=== PATIENT | female | born 2000 | race Caucasian/White ===

== ENCOUNTER 2024-06-29 01:24 | Emergency (ER) | payer OTHER, SELFPAY ==
[2024-06-29 01:29] VITALS: BP 137/96; PULSE 83; TEMP 37; O2SAT 98; BMI 20.4
--- NOTE | 2024-06-29 01:47 | ED.GENADUL1 ---
HPI HPI - General Adult General Chief complaint: Skin/Abscess/Foreign Body Stated complaint: SKIN IRRITATION Time Seen by Provider: 06/29/24 01:35 Source: patient Mode of arrival: walk-in History of Present Illness HPI narrative: 23-year-old female to the emergency department chief complaint rash that started over the last 24 to history of shingles with similar symptoms. She reports that the rash is painful. It is located on the right side under her breast. No injury. No new exposures. Otherwise at her baseline health. Related Data Previous Rx's ?Medication ?Instructions ?Recorded valacyclovir 1 gram tablet 1,000 mg PO Q8H 7 days #21 tabs 06/29/24 Allergies Allergy/AdvReac Type Severity Reaction Status Date / Time No Known Drug Allergies Allergy Verified 06/29/24 01:36 Opioid HPI Opioid Management Most Recent Opioid Data: No Data to Display Review of Systems ROS Status of ROS 10 or more systems reviewed and unremarkable except as noted in history and below PFSH PFSH Social History Little interest or pleasure in doing things: not at all Feeling down, depressed, or hopeless: not at all Exam Narrative Exam Narrative: VITALS: I have reviewed the triage vital signs. GENERAL: Well developed, well appearing adult in no acute distress. NEURO: Alert and oriented. Moves all extremities. Face is symmetric and expressive. SKIN: Warm and dry. Normal turgor. Erythematous rash with early vesicles located in a dermatomal distribution below the right breast. PSYCH: Mood, affect, and interaction is appropriate to the setting. Constitutional Vital Signs, click to edit/add: Last Vital Signs Temp 98.6 F 06/29/24 01:29 Pulse 83 06/29/24 01:29 Resp 16 06/29/24 01:29 BP 137/96 H 06/29/24 01:29 Pulse Ox 98 06/29/24 01:29 O2 Del Method Room Air 06/29/24 01:29 Course Vital Signs Vital signs: Vital Signs Temperature 98.6 F 06/29/24 01:29 Pulse Rate 83 06/29/24 01:29 Respiratory Rate 16 06/29/24 01:29 Blood Pressure 137/96 H 06/29/24 01:29 Pulse Oximetry 98 06/29/24 01:29 Oxygen Delivery Method Room Air 06/29/24 01:29 Temperature 98.6 F 06/29/24 01:29 Pulse Rate 83 12/18/24 01:29 Respiratory Rate 16 06/29/24 01:29 Blood Pressure 137/96 H 06/29/24 01:29 Pulse Oximetry 98 06/29/24 01:29 Oxygen Delivery Method Room Air 06/29/24 01:29 Medical Decision Making MDM Narrative Medical decision making narrative: 23-year-old female with rash below the right breast. Clinically consistent with early zoster. Vital stable, the patient is afebrile. Previously received an IM injection of steroid as well as valacyclovir and did well. She would like the same treatment today which I believe is reasonable. She will follow-up with her doctor. Return precautions were discussed. All questions were answered. The patient was discharged home. Medical Records Medical records reviewed: Yes I reviewed the patient's medical records Discharge Plan Discharge Chief Complaint: Skin/Abscess/Foreign Body Clinical Impression: Herpes zoster Patient Disposition: Home, Self-Care Condition: Good Mode of Transportation: Private Vehicle Prescriptions / Home Meds: New valacyclovir 1 gram tablet 1,000 mg PO Q8H 7 Days Qty: 21 0RF Print Language: Bulgarian Instructions: Shingles (ED) Additional Instructions: Call the office of your primary care doctor to arrange for follow-up within the above-stated timeframe. Your ED visit was focused on your acute issue and does not replace primary care. You should review your labs, imaging, and diagnoses from this ED visit with your primary care physician. There may be non-emergent/ incidental findings that need further evaluation. You should review your vital signs including blood pressure with your PCP. If you were prescribed medications you should discuss possible side-effects and drug interactions with your pharmacist. Call 911 or go to the nearest Emergency Department if you develop any new or worsening symptoms. Referrals: Physician,Non-Staff, MD [Primary Care Provider] - 1 week
[2024-06-29] MEDS: TRIAMCINOLONE ACETONIDE 40 MG/ML VIAL IM (02:01)
[2024-06-29] MEDS: VALACYCLOVIR HCL 500 MG TABLET 1000 MG PO (02:01)
== END 2024-06-29 02:10 | disposition home or self-care (01) ==
PROVIDERS: Emergency Provider Student in an Organized Health Care Education/Training Program
DX: B02.9 Zoster without complications (principal)
CPT/HCPCS: 96372; 99284; J3301

== ENCOUNTER 2025-02-13 22:48 | Emergency (ER) | payer OTHER, SELFPAY ==
--- OUTSIDE RECORDS SUMMARY | 2025-02-13 22:53 | XMS_ITS | CCD ---
Author Organization [facility] Care Team Providers Care Yard Clerk Name Role Phone JEANNIE KNOX Admitting Unavailable JEANNIE KNOX Attending Unavailable [facility] Primary Care Unava ilable JEANNIE KNOX Consulting Unavailable PAY ., DR COBIAN Admitting Unavailable PAY ., DR COBIAN Attending Unavailable PAY ., DR COBIAN Consulting Unavailable [facility] Care Unava ilable PEDRO FRAZIER Consulting Unavailable Elver Gray Attending Unavailable Elver Gray Admitting Unavailable NO FAMILY, PHYSICIAN Primary Care Unavailable NO PCP, NO PCP Primary Care Unavailable No Pcp, No Pcp Primary Care Provider Unavailabl e EMELI FERREIRA Referring Unavailable NO PCP, NO PCP Primary Care Unavailable EMELI FERREIRA Referring Unavailable NO PCP, NO PCP Primary Care Unavailable Medications Current Medications Medication Drug Class(es) Dates Sig (Normalized) Sig (Original) ethinyl estradiol 0.005 mg / norethindrone acetate 1 mg oral tablet (3 sources) Estrogen norethindrone ac -eth estradiol (FEMHRT 07/17) 1-5 mg-mcg tablet Take by mouth daily. Active fluconazole 150 mg oral tablet (1 source) Azole Antifungal Start: 07-09-2024 End: 07-09-2024 take 1 tablet by mouth once fluconazole (DIFLUCAN) 150 mg tablet Indications: Vaginal yeast infection Take 1 tablet (150 mg total) by mouth once for 1 dose. 1 tablet 07/09/2024 07/09/2024 Active ondansetron 4 mg disintegrating oral tablet (3 sources) Serotonin-3 Receptor Antagonist Start: 08-02-2022 take 1 tablet by mouth every eight hours as needed for nausea ondansetron ODT (ZOFRAN ODT) 4 mg disintegrating tablet Dissolve 1 tablet (4 mg total) on tongue every 8 (eight) hours as needed for nausea for up to 10 doses. 10 tablet 1 08/02/2022 Active vit 20-rjte-lsciu-dha ( + DHA) 28 mg iron- 975 mcg-200 mg combo pack (3 sources) Start: 06-30-2024 take 1 tablet by mouth in the morning vit 88-drkg-mifpn-dha ( + DHA) 28 mg iron- 975 mcg-200 mg combo pack Indications: Attempting to conceive Take 1 tablet by mouth in the morning. 30 each 11 06/30/2024 Active Problems Active Problems Problem Classification Problem Date Documented Date Episodic/Chronic Immunizations and screening for infectious disease (2 sources) Encounter for screening for infections with a predominantly sexual mode of transmission; Translations: [Encounter for screening for infections with a predominantly sexual mode of transmission] Onset: 06-30-2024 Episodic Inflammatory diseases of female pelvic organs (2 sources) Abscess of vulva; Translations: [Acute vaginitis] Onset: 07-03-2022 Episodic Mycoses (1 source) Candidiasis of vagina; Translations: [Vaginal yeast infection] 07-09-2024 Episodic Residual codes; unclassified (1 source) Other specified health status; Translations: [Other specified health status] Onset: 06-30-2024 Episodic Substance-related disorders (1 source) Nicotine dependence, cigarettes, uncomplicated; Translations: [NICOTINE DEPEND CIGARETTES UNCOMP] Onset: 07-03-2022 Chronic Unclassified (1 source) Annual Exam Onset: 06-30-2024 Viral infection (1 source) Zoster without complications; Translations: [Zoster without complications] Onset: 12-20-2022 Episodic Past or Other Problems Problem Classification Problem Date Documented Da te Episodic/Chronic Abdominal pain (4 sources) Unspecified abdominal pain; Translations: [UNSPECIFIED ABDOMINAL PAIN] Onset: 04-23-2022 Episodic Mood disorders (3 sources) Mood disorders Onset: 06-30-2024 06-30-2024 Nausea and vomiting (1 source) Nausea; Translations: [NAUSEA] Onset: 04-25-2022 Episodic Other skin disorders (3 sources) Rash and other nonspecific skin eruption; Translations: [RASH OTH NONSPECIFIC SKIN ERUPTION] Onset: 07-01-2022 Episodic Results Test Name Value Interpretation Reference Range Facil ity CHLAMYDIA/GC PCR, FLon 06-30 CHLAMYDIA/GC PCR, FL CHLAMYDIA PCR, FL Negative (qualifier value) Chlamydia trachomatis not detected by nucleic acid amplification. This does not exclude the possibility of infection because results are dependent on adequate specimen collection. GONORRHOEAE PCR, FL Negative (qualifier value) Neisseria gonorrhoeae not detected by nucleic acid amplification. This does not exclude the possibility of infection because results are dependent on adequate specimen collection. Normal [facility] Comment on above: Performed By: #### [facility] #### [facility] ([id number]) [address] [place] [address], [address] [place] [address] Cytologyon 06-30-2024 Cytology Normal [facility] Comment on above: Result Comment: [facility] [address] [place] [address] Gynecologic Cytology Consultation Patient Name:TOYA DE LA ROSA:2000 (Age: 23)Gender:FTaken:06/30/2024eported:07/19/2024Physician(s):Emeli Ferreira C.N.M. ([phone])Copy To: Rec. #:[id number]: #[id number] Final Cytologic Interpretation ThinPrep Pap Test (Cervical): Satisfactory for evaluation. A transformation zone component is present. Obscuring bacteria present. NEGATIVE FOR INTRAEPITHELIAL LESION OR MALIGNANCY. Fungal organisms morphologically consistent with Constance species are present. az/07/19/2024 Interpretation performed [facility] [place] [address], License number: [id number]. Electronically Signed Out By ALLEN Eastman(ASCP) Date of Last Menstrual Period: 06/21/24 Other Clinical Conditions: Z01.419 [employer]st[employer] Crew Leader exam wo/abn findings Source of Specimen ThinPrep Pap Test (Cervical) Thin Prep Pap (WHARF WORKER) Fee Code(s): G0145 The Pap test is a screening test with an inherent, but low, probability of error. The Pap test is primarily effective for the diagnosis and prevention of squamous cell carcinoma. Regular screening is critical for prevention. ThinPrep liquid-based slides, which meet the Magnetic Observer criteria for automated screening, have been screened by the ThinPrep Imaging System (as of 03/29/07) along with an additional manual rescreening by a special library librarian and, if indicated, by a pathologist. GRAM STAINon 06-30-2024 Microscopic observation Gram stain Nom (Unsp spec) GRAM STAIN INTERMEDIATE FOR BACTERIAL VAGINOSIS, ALTERED VAGINAL CRISTOPHER (Based on Kathleen scoring, validated for vaginal specimens) YEAST-LIKE ORGANISMS PRESENT Normal [facility] Comment on above: Performed By: #### 6 [id number] #### [facility] ([id number]) [address] [place] [address], [address] [place] [address] TRICHOMONAS PCRon 06-30-2024 TRICHOMONAS PCR SPECIMEN SOURCE VAGINAL TRICHOMONAS PCR Not detected (qualifier value) Trichomonas vaginalis not detected NOTE Assay methodology is nucleic acid amplification by real-time PCR for detection of Trichomonas vaginalis DNA performed on [employer] Instrument System. Normal [facility] Comment on above: Performed By: #### T RKPCR #### [facility] ([id number]) [address] [place] [address], [address] [place] [address] YEAST CULTUREon 06-30-2024 Yeast Org specific cx Ql (Unsp spec) FUNGAL SMEAR MANY YEAST RARE PSEUDOHYPHAE ON DIRECT SMEAR CULTURE RESULTS MANY CONSTANCE ALBICANS Abnormal [facility] Comment on above: Performed By: #### 1 [id number] #### [facility] ([id number]) [address] [place] [address], [address] [place] [address] CBC AUTO DIFFon 04-23-2022 BASO # 0.1 103/ul Normal 0.0-0.1 [facility] Comment on above: Performed By: #### C BC #### [facility] [address] [place] [address] Dr. Tung Rai Basophils/100 WBC (Bld) 0.7 % Normal 0.2-2.0 [facility] Comment on above: Performed By: #### C BC #### [facility] [address] [place] [address] Dr. Tung Rai EO # 0.4 103/ul Normal 0.0-0.7 [facility] Comment on above: Performed By: #### C BC #### [facility] [address] [place] [address] Dr. Tung Rai Eosinophils/100 WBC (Bld) 5.2 % Normal 0.9-7.0 [facility] Comment on above: Performed By: #### C BC #### [facility] [address] [place] [address] Dr. Tung Rai Erythrocyte distribution width (RBC) [Ratio] 12.6 % Normal 11.0-15.0 [facility] Comment on above: Performed By: #### C BC #### [facility] [address] [place] [address] Dr. Tung Rai Hematocrit (Bld) [Volume fraction] 36.2 % Normal 36.0-48.0 [facility] Comment on above: Performed By: #### C BC #### [facility] [address] [place] [address] Dr. Tung Rai Hemoglobin (Bld) [Mass/Vol] 12.0 g/dL Normal 12.0-16.0 [facility] Comment on above: Performed By: #### C BC #### [facility] [address] [place] [address] Dr. Tung Rai IG # 0.03 10e3/ul Normal 0.00-0.03 [facility] Comment on above: Performed By: #### C BC #### [facility] [address] [place] [address] Dr. Tung Rai IG % 0.4 % Normal 0.0-0.5 [facility] Comment on above: Performed By: #### C BC #### [facility] [address] [place] [address] Dr. Tung Rai LYMPH # 2.1 103/ul Normal 1.2-3.8 [facility] Comment on above: Performed By: #### C BC #### [facility] [address] [place] [address] Dr. Tung Rai Lymphocytes/100 WBC (Bld) 25.9 % Normal 20.5-60.0 [facility] Comment on above: Performed By: #### C BC #### [facility] [address] [place] [address] Dr. Tung Rai MANUAL DIFF REQ NO Normal [facility] Comment on above: Performed By: #### C BC #### [facility] [address] [place] [address] Dr. Tung Rai MCH (RBC) [Entitic mass] 30.8 pg Normal 26.7-34.0 [facility] Comment on above: Performed By: #### C BC #### [facility] [address] [place] [address] Dr. Tung Rai MCHC (RBC) [Mass/Vol] 33.1 g/dL Normal 29.9-35.2 [facility] Comment on above: Performed By: #### C BC #### [facility] [address] [place] [address] Dr. Tung Rai MCV (RBC) [Entitic vol] 93.1 fL Normal 81.0-99.0 [facility] Comment on above: Performed By: #### C BC #### [facility] [address] [place] [address] Dr. Tung Rai MONO # 0.8 103/ul Normal 0.3-0.8 [facility] Comment on above: Performed By: #### C BC #### [facility] [address] [place] [address] Dr. Tung Rai Monocytes/100 WBC (Bld) 9.2 % Normal 1.7-12.0 [facility] Comment on above: Performed By: #### C BC #### [facility] [address] [place] [address] Dr. Tung Rai NEUT # 4.8 103/ul Normal 1.4-6.5 [facility] Comment on above: Performed By: #### C BC #### [facility] [address] [place] [address] Dr. Tung Rai Neutrophils/100 WBC (Bld) 58.6 % Normal 43.0-75.0 [facility] Comment on above: Performed By: #### C BC #### [facility] [address] [address] [address] Tung Rai Platelet mean volume (Bld) [Entitic vol] 11.7 fL Normal 9.5-13.5 [facility] Comment on above: Performed By: #### C BC #### [facility] [address] [address] [address] Tung Rai PLT 266 103/ul Normal 150-450 [facility] Comment on above: Performed By: #### C BC #### [facility] [address] [address] [address] Tung Rai RBC 3.89 106/ul Critically low 4.20-5.40 [facility] Comment on above: Performed By: #### C BC #### [facility] [address] [address] [address] Tung Rai WBC 8.3 103/ul Normal 4.0-11.0 [facility] Comment on above: Performed By: #### C BC #### [facility] [address] ABD/PELVIS WO CONon 04-23 CT ABD/PELVIS WO CON EXAMINATION: CT ABD/PELVIS WO CON, 04/23/2022 9:15 AM EDT HISTORY: UNSPECIFIED ABDOMINAL PAIN COMPARISON: None. TECHNIQUE: CT scan of the abdomen and pelvis was performed without IV contrast. CT dose reduction technique was used, including Automated Exposure Control. ABDOMEN/PELVIS FINDINGS: Lower Chest: Unremarkable. Liver: Normal nonenhanced appearance and contour. Biliary/Gallbladder: Unremarkable. Pancreas: Unremarkable. Spleen: Unremarkable. Adrenal Glands: Unremarkable. Kidneys: Unremarkable. Gastrointestinal/Perit oneum: No acute abnormality. The appendix is unremarkable. No free air or free fluid. Vascular: Unremarkable. Lymph Nodes: No enlarged lymph nodes by CT size criteria. Pelvic Organs: Unremarkable. Bladder: Unremarkable. Bones: No acute osseous abnormality. Soft tissues: Unremarkable. IMPRESSION: 1. No acute abnormality of the abdomen and pelvis. Electronically authenticated by: PEDRO FRAZIER Date: 2022-04-23 10:28 Normal [facility] ER URINE PROFILEon 2 Bilirubin Ql (U) Negative Normal NEGATIVE [facility] Comment on above: Performed By: #### E RESHMA FUNEZ, PREGU #### [facility] [address] [address] [address] Tung Rai Clarity (U) CLEAR Normal CLEAR [facility] Comment on above: Performed By: #### E RUR UMICRO, PREGU #### [facility] [address] [address] [address] Tung Rai Color (U) LT. YELLOW Normal YELLOW [facility] Comment on above: Performed By: #### RESHMA FLOYD, PREGU #### [facility] [address] [place] [address] Dr. Tung LEBLANC A micrscopic examination will be performed if indicated. Normal [facility] Comment on above: Performed By: #### Roderick RUR UMICRO, PREGU #### [facility] [address] [address] [address] Tung Rai Glucose Ql (U) Negative Normal NEGATIVE [facility] Comment on above: Performed By: #### RESHMA FLOYD, PREGU #### [facility] [address] [address] [address] Tung Rai Hemoglobin Ql (U) SMALL Abnormal NEGATIVE [facility] Comment on above: Performed By: #### Roderick RURADELEICRO, PREGU #### [facility] [address] [address] [address] Tung Rai Ketones Ql (U) Negative Normal NEGATIVE [facility] Comment on above: Performed By: #### Roderick RURADELEICRO, PREGU #### [facility] [address] [address] [address] Tung Rai LEUKOCYTES TRACE Abnormal NEGATIVE [facility] Comment on above: Performed By: #### Roderick RURADELEICRO, PREGU #### [facility] [address] [address] [address] Tung Rai Nitrite Ql (U) Negative Normal NEGATIVE [facility] Comment on above: Performed By: #### E RUR, UMICRO, PREGU #### [facility] [address] [place] [address] Dr. Tung Rai pH (U) 7.0 [pH] Normal 5-9 [facility] Comment on above: Performed By: #### E RUR, UMICRO, PREGU #### [facility] [address] [place] [address] Dr. Tung Rai SPEC GRAVITY 1.025 Normal 1.005-<=1.025 [facility] Comment on above: Performed By: #### E RUR UMICRO, PREGU #### [facility] [address] [place] [address] Dr. Tung Rai UA PROTEIN Negative Normal NEGATIVE/ TRACE [facility] Comment on above: Performed By: #### E RUR UMICRO, PREGU #### [facility] [address] [place] [address] Dr. Tung Rai UR MICRO IND INDICATED Normal [facility] Comment on above: Performed By: #### E RUR, UMICRO, PREGU #### [facility] [address] [place] [address] Dr. Tung Rai Urobilinogen Qn (U) 1.0 {Johana'U}/dL Normal 0.2 - 1.0 [facility] Comment on above: Performed By: #### E RUR UMICRO, PREGU #### [facility] [address] [place] [address] Dr. Tung Rai LIPASEon 04-23-2022 Lipase [Catalytic activity/Vol] 77.0 U/L Normal 73.0-393.0 [facility] Comment on above: Performed By: #### L IPA, CMP #### [facility] [address] [place] [address] Dr. Tung Rai URon 04-23-2022 , QUAL Negative Normal NEGATIVE [facility] Comment on above: Performed By: #### E RUR, UMICRO, PREGU #### [facility] [address] [address] [address] Tung Rai PROF 14(COMP METB)on 022 Albumin [Mass/Vol] 4.0 g/dL Normal 3.4-5.0 [facility] Comment on above: Performed By: #### L IPA, CMP #### [facility] [address] [place] [address] Dr. Tung Rai Albumin/Globulin [Mass ratio] 1.1 {ratio} Normal [facility] Comment on above: Performed By: #### L IPA, CMP #### [facility] [address] [place] [address] Dr. Tung Rai ALP [Catalytic activity/Vol] 59 U/L Normal 46-116 [facility] Comment on above: Performed By: #### L IPA, CMP #### [facility] [address] [place] [address] Dr. Tung Rai ALT [Catalytic activity/Vol] 19 U/L Normal 14-59 [facility] Comment on above: Performed By: #### L IPA, CMP #### [facility] [address] [place] [address] Dr. Tung Rai Anion gap [Moles/Vol] 13.5 mmol/L Normal [facility] Comment on above: Performed By: #### L IPA, CMP #### [facility] [address] [place] [address] Dr. Tung Rai AST [Catalytic activity/Vol] 14 U/L Critically low 15-37 [facility] Comment on above: Performed By: #### L IPA, CMP #### [facility] [address] [place] [address] Dr. Tung Rai Bilirubin [Mass/Vol] 0.3 mg/dL Normal 0.2-1.0 [facility] Comment on above: Performed By: #### L IPA, CMP #### [facility] [address] [place] [address] Dr. Tung Rai Calcium [Mass/Vol] 9.1 mg/dL Normal 8.5-10.1 [facility] Comment on above: Performed By: #### L IPA, CMP #### [facility] [address] [address] [address] Tung Rai Chloride [Moles/Vol] 103 mmol/L Normal 98-107 [facility] Comment on above: Performed By: #### L IPA, CMP #### [facility] [address] [address] [address] Tung Rai CO2 [Moles/Vol] 26.1 mmol/L Normal 21.0-32.0 [facility] Comment on above: Performed By: #### L IPA, CMP #### [facility] [address] [address] [address] Tung Rai Creatinine [Mass/Vol] 0.72 mg/dL Normal 0.55-1.02 [facility] Comment on above: Performed By: #### L IPA, CMP #### [facility] [address] [place] [address] Dr. Tung Rai EGFR-AF [place] >60 Normal >=60 [facility] Comment on above: Performed By: #### L IPA, CMP #### [facility] [address] [address] [address] Tung Rai EGFR-NON AF [place] >60 Normal >=60 [facility] Comment on above: Performed By: #### L IPA, CMP #### [facility] [address] [address] [address] Tung Rai Globulin (S) [Mass/Vol] 3.7 g/dL Normal [facility] Comment on above: Performed By: #### L IPA, CMP #### [facility] [address] [address] [address] Tung Rai Glucose [Mass/Vol] 90 mg/dL Normal 74-106 [facility] Comment on above: Performed By: #### L IPA, CMP #### [facility] [address] [address] [address] Tung Rai Potassium [Moles/Vol] 3.6 mmol/L Normal 3.5-5.1 [facility] Comment on above: Performed By: #### L IPA, CMP #### [facility] [address] [address] [address] Tung Rai Protein [Mass/Vol] 7.7 g/dL Normal 6.4-8.2 [facility] Comment on above: Performed By: #### L IPA, CMP #### [facility] [address] [address] [address] Tung Rai Sodium [Moles/Vol] 139 mmol/L Normal 136-145 [facility] Comment on above: Performed By: #### L IPA, CMP #### [facility] [address] [place] [address] Dr. Tung Rai Urea nitrogen [Mass/Vol] 12.0 mg/dL Normal 7.0-18.0 [facility] Comment on above: Performed By: #### L IPA, CMP #### [facility] [address] [place] [address] Dr. Tung Rai Urea nitrogen/Creatinin e [Mass ratio] 16.7 mg/mg Normal [facility] Comment on above: Performed By: #### L IPA, CMP #### [facility] [address] [place] [address] Dr. Tung Rai URINE MICROSCOPIC ONLYon BACTERIA TRACE Abnormal NONE SEEN [facility] Comment on above: Performed By: #### RESHMA FLOYD, PREGU #### [facility] [address] [place] [address] Dr. Tung Rai Bacteria identified Cx Nom (U) NOT INDICATED Normal [facility] Comment on above: Performed By: #### RESHMA FLOYD, PREGU #### [facility] [address] [place] [address] Dr. Tung Rai CAST NONE SEEN Normal NONE SEEN [facility] Comment on above: Performed By: #### RESHMA FLOYD, PREGU #### [facility] [address] [place] [address] Dr. Tung Rai Crystals LM Nom (Urine sed) NONE SEEN Normal NONE SEEN [facility] Comment on above: Performed By: #### RESHMA FLOYD, PREGU #### [facility] [address] [address] [address] Tung Rai Epithelial cells LM Ql (Urine sed) FEW Abnormal NONE SEEN /RARE [facility] Comment on above: Performed By: #### RESHMA FLOYD, PREGU #### [facility] [address] [address] [address] Tung Rai MUCOUS SMALL Abnormal NONE SEEN [facility] Comment on above: Performed By: #### RESHMA FLOYD, PREGU #### [facility] [address] [address] [address] Tung Rai RBC 2-5 Abnormal 0-2 [facility] Comment on above: Performed By: #### RESHMA FLOYD, PREGU #### [facility] [address] [address] [address] Tung Rai WBC 2-5 Abnormal NONE SEEN [facility] Comment on above: Performed By: #### RESHMA FLOYD, PREGU #### [facility] [address] [address] [address] Tung Rai Encounters Encounter Date Encounter Type Care Provider Facility Start: 07-09-2024 End: 07-09-2024 Telephone encounter Emeli COELLO Work Phone: [facility] Comment on above: Vaginal yeast infect ion (Primary Dx) Start: 07-08-2024 End: 07-08-2024 Telephone encounter Emeli COELLO [facility] Start: 06-30-2024 End: 06-30-2024 ambulatory EMELI FERREIRA [facility] Start: 06-30-2024 End: 06-30-2024 ambulatory NO PCP NO PCP [facility] Start: 06-30-2024 Encounter for gynecological examination (general) (routine) without abnormal findings NO NO PCP [facility] Start: 06-30-2024 End: 06-30-2024 ambulatory [facility] Start: 06-30-2024 Encounter for gynecological examination (general) (routine) without abnormal findings EMELI FERREIRA [facility] Start: 12-20-2022 End: 12-20-2022 Emergency department patient visit Elver Gray Facility:[facility] Start: 07-01-2022 End: 07-02-2022 ambulatory JEANNIE KNOX Facility: Start: 04-23-2022 End: 04-23-[address] MANGO MARTINEZ . Facility: Procedures Date Procedure Procedure Detail Performing Clinician Start: 06-30-2024 Adult depression scr eening assessment Emelisree Kwonglorne BROCK-MONIM Work Phone: Start: 06-30-2024 Microscopic observat ion [Identifier] in Cervix by Cyto stain Emeli CURIEL Work Phone: Plan of Treatment Date Care Activity Detail Author Start: 06-30-2027 Screening for malign ant neoplasm of cervix Pap Smear [facility] Start: 12-29-2025 Tobacco Counseling Tobacco Counselin g [facility] Start: 06-30-2025 Adult BMI Screening Adult BMI Screen ing [facility] Start: 06-30-2025 Depression Screening Depression Scre ening [facility] Start: 06-30-2025 Tobacco Screening Tobacco Screening [facility] Start: 03-13-2024 Influenza vaccination Influenza Vacc ine [facility] Start: 03-03-2024 DTaP,Tdap and Td Vaccines (7 - Td or Tdap) DTaP,Tdap and Td Vaccines (7 - Td or Tdap) [facility] Immunizations Immunization Date Immunization Notes Care Provider Nicole huber 06-16-2003 influenza virus vaccine, unspecified formulation Emeli Kwonglorne HOSPITAL PRODUCT SPECIALIST-CN[facility] Work Phone: [facility] Payers Date Payer Category Payer Commercial Managed C are - [employer] Member Subscriber Plan / Payer (Effective 2024-Present) Name: Toya De La Rosa Member ID: [id number] Relation to Subscriber: Child Name: Mango De La Rosa Date of : 1980 (Home) Address: [address] [place] [address] Payer ID: Not on file Type: Not on file Address: [address] [place] [address] [id number] 2024 Unknown [id number] 2022 Self-pay 2001 Unknown [id number] 2001 Unknown [id number] 2001 Unknown [id number] 2001 Unknown [id number] 2001 Unknown [id number] 1959 Unknown [id number] Unknown [id number] Social History Date Type Detail Facility Start: 06-30-2024 Tobacco smoking status LAIS Smokes tobacco daily [facility] History of tobacco use Tobacco U se Types Packs/Day Years Used Date Smoking Tobacco: Every Day Vaping/E-cigarettes Smokeless Tobacco: Never [facility] Start: 06-30-2024 Tobacco use and exposure Smokeless tobacco non-user [facility] Start: 06-30-2024 Alcoholic beverage intake Ex-drinker (finding) [facility] Start: 01-24-2020 End: 08-23-2020 History of Social function [facility] Start: 01-24-2020 End: 08-23-2020 Alcohol Use Disorder Identification Test - Consumption [AUDIT-C] [facility] How often to you hav e a drink containing alcohol? Never [facility] Average Number of Drinks Not on file [facility] Start: 08-02-2022 Alcohol Comment occasionally [facility] Start: 2001 Sex assigned at Not on file [facility] Start: 02-15-2015 Sex Female (finding) [facility] History of Present illness Narrative 07-09-2024 [facility] Limon - 07/09/2024 10:08 AM EST Note Date & Type Note Facility 07-09-2024 History of Presen t illness Narrative Vag yeast infection Rx. Diflucan sent to pharmacy [facility] 07/09/24 1009 documented in this encounter [facility] Note 07-09-2024 Telephone Encounter - [facility] Limon - 07/09/2024 10:06 AM EST Note Date & Type Note Facility 07-09-2024 Miscellaneous Notes Formattin g of this note might be different from the original. Call to pt. To discuss results. VM reached. documented in this encounter [facility] Telephone encounter Note 07-09-2024 Telephone Encounter - [facility]UM[facility] Limon - 07/09/2024 10:06 AM EST Note Date & Type Note Facility 07-09-2024 Telephone encount er Note Call to pt. To discuss results. VM reached. [facility] Note 07-08-2024 Telephone Encounter - [facility]UM[facility] Limon - 07/08/2024 5:46 PM EST Note Date & Type Note Facility 07-08-2024 Miscellaneous Notes Formattin g of this note might be different from the original. CALL TO PT. TO DISCUSS VAGINAL CULTURES AND VM REACHED. ADVISED FOR PT. TO CALL BACK FOR RESULTS documented in this encounter [facility] Telephone encounter Note 07-08-2024 Telephone Encounter - OUM[facility] Limon - 07/08/2024 5:46 PM EST Note Date & Type Note Facility 07-08-2024 Telephone encount er Note CALL TO PT. TO DISCUSS VAGINAL CULTURES AND VM REACHED. ADVISED FOR PT. TO CALL BACK FOR RESULTS [facility] Evaluation note Note Date & Type Note Facility Evaluation note Diagnosis Vaginal yeast infection- Primary Candidiasis of vulva and vagina documented in this encounter [facility] Instructions Note Date & Type Note Facility Instructions Not on filedocumented in this en counter [facility] Instructions Note Date & Type Note Facility Instructions Not on filedocumented in this en counter [facility] Summary Purpose Family History No Family History Records FoundNo Family History Records FoundNo Family History Records FoundNo Family History Records FoundNo Family History Records Found Advance Directives No Advanced Directives Records FoundNo Advanced Directives Records FoundNo Advanced Directives Records FoundNo Advanced Directives Records FoundNo Advanced Directives Records Found Additional Source Comments INFORMATION SOURCE (unrecogn ized section and content) DATE CREATED AUTHOR 10/14/[address] 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 This clinical summary was aggregated from multiple sources. Caution should be exercised in using it in the provision of clinical care. This summary normalizes information from multiple sources, and as a consequence, information in this document may materially change the coding, format and clinical context of patient data. In addition, data may be omitted in some cases. CLINICAL DECISIONS SHOULD BE BASED ON THE PRIMARY CLINICAL RECORDS. [facility]. provides no warranty or guarantee of the accuracy or completeness of information in this document.
[2025-02-13 23:20] VITALS: BP 136/69; PULSE 97; TEMP 36.9; O2SAT 97; BMI 19.5
[2025-02-13 23:29] LABS: Glucose Urine UA NEGATIVE (NEGATIVE)
--- NOTE | 2025-02-13 23:29 | ED_ITS ---
HPI HPI - General Adult General Chief complaint: Back Pain/Injury Stated complaint: Flank Pain Time Seen by Provider: 02/13/25 22:58 Source: patient Mode of arrival: walk-in Limitations: no limitations History of Present Illness HPI narrative: 24-year-old female presented to the emergency department for pain in her right shoulder area which goes down her ribs on the right side. She has had this pain for a few days. For the last 3 months when she started her menstrual cycle she developed this pain. There is been no injury or fever or cough or abdominal pain. The timing of her period is normal. Related Data Home Medications ?Medication ?Instructions ?Recorded ?Confirmed No Known Home Medications 02/13/25 0811/04 Allergies Allergy/AdvReac Type Severity Reaction Status Date / Time No Known Drug Allergies Allergy Verified 02/13/25 23:19 Opioid HPI Opioid Management Most Recent Opioid Data: Last Pain Scale 10 02/13/25, 23:29 Review of Systems ROS Narrative A ten point review of systems is negative except as noted above. PFSH PFSH Social History Little interest or pleasure in doing things: not at all Feeling down, depressed, or hopeless: not at all Exam Narrative Exam Narrative: Nurses note and vital signs reviewed and patient is not hypoxic. General: The patient appears well and in no apparent distress. Patient is resting comfortably on cart. Skin: Warm, dry, no pallor noted. There is no rash noted. Head: Normocephalic, atraumatic Eye: Normal conjunctiva, no drainage Ears, Nose, Mouth, and Throat: oral mucosa is moist. Nares patent. Cardiovascular: Regular Rate and Rhythm Respiratory: Patient is in no distress, no accessory muscle use, lungs are clear to auscultation, no wheezing, rales or rhonchi Back: There is no bruise rash or abrasion. She has palpable tenderness in the right lateral mid rib region. GI: Soft and nontender Musculoskeletal: The patient has no evidence of calf tenderness, no pitting edema, symmetrical pulses noted bilaterally Neurological: A&O, normal speech Psychiatric: Cooperative Constitutional Vital Signs, click to edit/add: Last Vital Signs Temp 98.5 F 02/13/25 23:20 Pulse 97 H 02/13/25 23:20 Resp 18 02/13/25 23:20 BP 136/69 02/13/25 23:20 Pulse Ox 97 02/13/25 23:20 O2 Del Method Room Air 02/13/25 23:20 Course Vital Signs Vital signs: Vital Signs Temperature 98.5 F 02/13/25 23:20 Pulse Rate 97 H 02/13/25 23:20 Respiratory Rate 18 02/13/25 23:20 Blood Pressure 136/69 02/13/25 23:20 Pulse Oximetry 97 02/13/25 23:20 Oxygen Delivery Method Room Air 02/13/25 23:20 Temperature 98.5 F 02/13/25 23:20 Pulse Rate 97 H 02/13/25 23:20 Respiratory Rate 18 02/13/25 23:20 Blood Pressure 136/69 02/13/25 23:20 Pulse Oximetry 97 02/13/25 23:20 Oxygen Delivery Method Room Air 02/13/25 23:20 Medical Decision Making MDM Narrative Medical decision making narrative: Urinalysis, test, and chest x-ray are all negative. The patient had some concerns about endometriosis. She has no abdominal pain and I have no suspicion that this is endometriosis. I also do not suspect an ovarian cyst which is a concern of the patient as well. 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 Treatment diagnosis and follow-up were discussed thoroughly. Differential Diagnosis Differential Diagnosis: UTI, kidney stone, pneumothorax Lab Data Lab results reviewed: Yes I reviewed the patient's lab results Labs: Lab Results 02/13/25 Range/Units 23:20 Urine Color Lt. yellow (YELLOW) Urine Clarity Clear (CLEAR) Urine pH 7.0 (5.0-9.0) Ur Specific [place] 1.015 (1.005-1.025) Urine Protein Negative (NEG/TRACE) mg/dL Urine Glucose (UA) Negative (NEGATIVE) mg/dL Urine Ketones Negative (NEGATIVE) mg/dL Urine Occult Blood Negative (NEGATIVE) Urine Nitrite Negative (NEGATIVE) Urine Bilirubin Negative (NEGATIVE) Urine Urobilinogen 1.0 (0.2-1.0) EU/dL Ur Leukocyte Esterase Negative (NEGATIVE) Urine RBC None seen (0-2) #/HPF Urine WBC None seen (NONE SEEN) #/HPF Ur Squamous Epith Cells Rare (NONE/RARE) #/LPF Urine Crystals Seen A (None Seen) #/HPF Amorphous Sediment Many Urine Bacteria Small A (NONE SEEN) #/HPF Urine Casts None seen (NONE SEEN) #/LPF Urine Mucus None seen (NONE SEEN) Ur Culture Indicated? Yes[facility] [place] Urine HCG, Qual Negative (NEGATIVE) Imaging Data Chest x-ray: Radiologist's impression: ITS Impressions Chest X-Ray 02/13/25 23:29 IMPRESSION: NEGATIVE CHEST. Impression dictated by: Nixon Steve M.D. 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
--- NOTE | 2025-02-13 23:29 | XR_ITS ---
[facility] [place] [id number] Patient Name: TOYA DE LA ROSA MRN: [id number] date: 2000 Sex: F Assigned Patient Location: ER Current Patient Location: ER Accession/Order Number: [id number] Exam Date: 02/13/2025 23:55 Report Date: 02/13/2025 23:55 At the request of: ARNOLD ALFARO MD Procedure: XR chest 1V PA CHEST: CLINICAL HISTORY: Chest pain COMPARISON: None The heart is normal in size. The lungs are clear. The pulmonary vasculature is normal. Mediastinum and hilar regions are unremarkable. No pleural effusions are seen. Visualized bones are intact. XR/XR chest 1V IMPRESSION: NEGATIVE CHEST. Impression dictated by: Nixon Steve M.D. 02/13/2025 11:55 PM Dictation Location: [place] [address] Electronically authenticated by: [id number] Y Date: 02/13/2025 23:55
[2025-02-13 23:30] LABS: HCG Qualitative Urine* NEGATIVE (NEGATIVE)
[2025-02-13 23:38] LABS: Cast Seen? NONE SEEN #/LPF (NONE SEEN); Crystals Seen? Seen #/HPF (None Seen); Urine Culture Indicated YES-FRMC
--- NOTE | 2025-02-13 23:55 | PC.NURSE ---
this patient updated that now we are waiting on the x-ray results now. this patient voices no concerns, needs and shows no signs of distress
--- NOTE | 2025-02-14 00:28 | PC.NURSE ---
i gave this patient verbal and written discharge orders and this patient voices yes to understanding these. at time of discharge this patient voices no concerns, needs and shows no signs of distress
== END 2025-02-14 00:24 | disposition home or self-care (01) ==
PROVIDERS: Emergency Provider Emergency Medicine
DX: R07.9 Chest pain, unspecified (principal)
CPT/HCPCS: 71045; 81001; 84703; 87086; 99284